=== PATIENT | female | born 1950 | race Two or more races ===

== ENCOUNTER → 2025-01-17 | Outpatient (CLI) | payer MEDICARE, MEDICAID, SELFPAY ==
--- NOTE | 2025-01-17 08:45 | XR_ITS ---
Examination: Abdomen sonogram, Limited Date and time of exam: January 17, 2025 0853 hours INDICATIONS: Elevated liver function tests on laboratory examination one week ago Technique: Real-time vick scale transabdominal sonographic images of the upper abdomen obtained. Findings: Absent gallbladder Normal common bile duct 0.5 cm Pancreatic head 2.2 cm Liver 12.8 cm smooth contour Normal hepatopedal portal venous oh Patent IVC IMPRESSION: Absent gallbladder Normal common bile duct
== END | disposition home or self-care (01) ==
PROVIDERS: PCP Student in an Organized Health Care Education/Training Program; Referring Provider Student in an Organized Health Care Education/Training Program; Visit Provider Student in an Organized Health Care Education/Training Program
DX: R94.5 Abnormal results of liver function studies (principal); Z90.49 Acquired absence of other specified parts of digestive tract
CPT/HCPCS: 76705

== ENCOUNTER → 2025-03-03 | Outpatient (CLI) | payer MEDICARE, MEDICAID, SELFPAY ==
--- NOTE | 2025-03-03 09:51 | XR_ITS ---
Examination: Lumbar spine, 5 views Technique: Lumbar spine AP, lateral, coned lateral lower lumbar spine, bilateral obliques 5 views Exam date and time: March 03, 2025, 1004 hours, comparison April 09, 2022 INDICATIONS: Lower back pain radiating to the right hip beginning 5 months ago. FINDINGS: Severe osteopenia Lumbar dextroscoliosis 10 degrees Advanced diffuse facet arthropathy No acute lumbar fracture Minimal grade 1 anterolisthesis L5 on S1 Mild lumbar spondylosis Mild disc narrowing posteriorly L5-S1 IMPRESSION: Mild disc narrowing posteriorly L5-S1 with significant spinal stenosis
== END | disposition home or self-care (01) ==
PROVIDERS: PCP Student in an Organized Health Care Education/Training Program; Referring Provider Student in an Organized Health Care Education/Training Program; Visit Provider Student in an Organized Health Care Education/Training Program
DX: M48.07 Spinal stenosis, lumbosacral region (principal)
CPT/HCPCS: 72110

== ENCOUNTER → 2025-04-25 | Outpatient (CLI) | payer MEDICARE, MEDICAID, SELFPAY ==
--- NOTE | 2025-04-25 13:53 | EKG_ITS ---
[facility] Test Date: 2025-04-25 Pat Name: DAX FORRESTER Department: Room: - Gender: Female Die Maintenance: DEVEN : 1950 Requested By: Charleen Laird Order Number: [id number] Reading MD: Charleen Laird Measurements Intervals [place] Rate: 82 P: 57 DE: 128 QRS: 36 QRSD: 78 T: 64 QT: 350 QTc: 410 Interpretive Statements SINUS RHYTHM Compared to ECG 05/29/2018 13:04:35 Sinus tachycardia no longer present /[id number].pdf
--- NOTE | 2025-04-25 14:34 | XR_ITS ---
EXAMINATION: PA lateral chest 2 views TECHNIQUE: Upright PA lateral chest 2 views Date and time: April 25, 2025, 1449 hours INDICATIONS: Coughing this week. FINDINGS: Normal heart size No lobar pneumonia. Prominent osteopenia IMPRESSION: No pneumonia identified
== END | disposition home or self-care (01) ==
LOC: SDIM 13:45
PROVIDERS: PCP Student in an Organized Health Care Education/Training Program; Referring Provider Student in an Organized Health Care Education/Training Program; Visit Provider Student in an Organized Health Care Education/Training Program
DX: R05.9 Cough, unspecified (principal); Z01.818 Encounter for other preprocedural examination
CPT/HCPCS: 71046; 93005